=== PATIENT | male | born 1965 | race African-American/Black ===

== ENCOUNTER 2024-02-12 15:32 | Outpatient (AMB) | payer BC, SELFPAY ==
--- NOTE | 2024-02-12 15:36 | HO.NEPHOV ---
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 He has gained some weight. He is compliant with medications. His blood pressure has been at goal. He does not have any orthostatic symptoms. He has no side effects from his current medication regimen. He denies excessive sodium in the diet. He does not have any chest pain, shortness of breath, proximal nocturnal dyspnea, orthopnea, pedal edema. He does not take any excessive nonsteroidal anti-inflammatories. He maintains good hydration. There were no new active complaints at the time of this office visit. [facility] Medical History (Updated 02/12/24 @ 15:47 by Isacc Ash MD) Hypertension Surgical History (Updated 02/12/24 @ 14:59 by Yoselin Wilkinson MA) History of vasectomy Family History (Updated 02/12/24 @ 15:01 by Yoselin Wilkinson MA) Father Kidney transplant status Hypertension Sister Kidney disease Social History (Updated 02/12/24 @ 15:41 by Yoselin Wilkinson MA) Alcohol intake: never Patient Tobacco Use Status: Never used Tobacco Review of Systems Const All systems reviewed & are unremarkable except as noted in HPI and below Physical Exam Vital Signs: Last Vital Signs Pulse 71 02/12/24 15:37 BP 120/70 02/12/24 15:37 Pulse Ox 98 02/12/24 15:37 Oxygen Delivery Method Room Air 02/12/24 15:37 BMI result Body Mass Index 31.8 Const General: comfortable and no acute distress Orientation/consciousness: patient oriented x3 HEENT Head: Yes normocephalic Mouth: Normal oral and palatal mucosa present Eyes EOM: EOMs intact bilaterally Neck Neck: Yes supple Resp Auscultation: clear to auscultation bilaterally Cardio Jugular venous distension: no JVD Rate: regular rate GI Palpation (GI): Soft to palpation Auscultation: normal bowel sounds General: Yes no CVA tenderness Back/Spine/Pelvis Back: no CVA tenderness Skin General skin exam: no rashes or lesions noted Neuro General: patient oriented x3 and moves all extremities Extrem General: Yes no pedal edema Results Reviewed Nephrology Results: No Data to Display Assessment & Plan Assessment & Plan (1) Hypertension: Code(s): I10 - Essential (primary) hypertension Category: Medical Qualifiers: Hypertension type: primary hypertension Qualified Code(s): I10 - Essential (primary) hypertension Plan Manuelito as hypertension for long time. He has been on current medication regimen which is keeping his blood pressure at goal. Does not have any known retinopathy, proteinuria, left ventricular hypertrophy or renal dysfunction. He has no active thyroid issues, hypokalemia or hypercalcemia. He does not have any sleep apnea. I asked him to lose some weight. I did not make any medication changes today. Follow-up lab work ordered to be done in a year. Shall be happy to see him before a year if the need arises. Orders: Orders Creatinine Today I10 - Essential (primary) hypertension Blood Urea Nitrogen Today I10 - Essential (primary) hypertension Electrolytes Today I10 - Essential (primary) hypertension Protein Creatinine Ratio, Ur Today I10 - Essential (primary) hypertension Coding Level of Care Code Est Pt Level 4 (05242) Diagnoses Primary hypertension I10 Hypertension type: primary hypertension
[2024-02-12 15:37] VITALS: BP 120/70; PULSE 71; O2SAT 98; BMI 31.8
== END 2024-02-12 16:06 | disposition home or self-care (01) ==
PROVIDERS: Visit Provider Internal Medicine Nephrology
DX: I10 Essential (primary) hypertension (principal)
CPT/HCPCS: 99214

== ENCOUNTER → 2024-02-12 15:32 | Outpatient (BNVA) | payer BC, SELFPAY | PROVIDERS: Visit Provider Internal Medicine Nephrology ==

== ENCOUNTER 2025-02-12 15:15 | Outpatient (AMB) | payer BC, SELFPAY ==
--- NOTE | 2025-02-12 15:21 | HO.NEPHOV ---
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 He is compliant with medications. His blood pressure has been at goal. He does not have any orthostatic symptoms. He has no side effects from his current medication regimen. He denies excessive sodium in the diet. He does not have any chest pain, shortness of breath, proximal nocturnal dyspnea, orthopnea, pedal edema. He does not take any excessive nonsteroidal anti-inflammatories. He maintains good hydration. There were no new active complaints at the time of this office visit. [facility] Medical History (Updated 02/12/24 @ 15:47 by Isacc Ash MD) Hypertension Surgical History History of vasectomy Family History Father Kidney transplant status Hypertension Sister Kidney disease Social History Alcohol intake: never Patient Tobacco Use Status: Never used Tobacco Review of Systems Const All systems reviewed & are unremarkable except as noted in HPI and below Physical Exam Vital Signs: Last Vital Signs Pulse 61 02/12/25 15:24 BP 150/90 H 02/12/25 15:24 Pulse Ox 94 02/12/25 15:24 Oxygen Delivery Method Room Air 02/12/25 15:24 BMI result Body Mass Index 33.8 Const General: comfortable and no acute distress Orientation/consciousness: patient oriented x3 HEENT Head: Yes normocephalic Mouth: Normal oral and palatal mucosa present Eyes EOM: EOMs intact bilaterally Neck Neck: Yes supple Resp Auscultation: clear to auscultation bilaterally Cardio Jugular venous distension: no JVD Rate: regular rate GI Palpation (GI): Soft to palpation Auscultation: normal bowel sounds General: Yes no CVA tenderness Back/Spine/Pelvis Back: no CVA tenderness Skin General skin exam: no rashes or lesions noted Neuro General: patient oriented x3 and moves all extremities Extrem General: Yes no pedal edema Assessment & Plan Assessment & Plan (1) Hypertension: Code(s): I10 - Essential (primary) hypertension Category: Medical Qualifiers: Hypertension type: primary hypertension Qualified Code(s): I10 - Essential (primary) hypertension Plan Manuelito as hypertension for long time. He has been on current medication regimen which is keeping his blood pressure at goal. Does not have any known retinopathy, proteinuria, left ventricular hypertrophy or renal dysfunction. He has no active thyroid issues, hypokalemia or hypercalcemia. He does not have any sleep apnea. I asked him to lose some weight. I did not make any medication changes today. Follow-up lab work ordered to be done in a year. Shall be happy to see him before a year if the need arises. Coding Level of Care Code Est Pt Level 4 (19350) Diagnoses Primary hypertension I10 Hypertension type: primary hypertension
[2025-02-12 15:24] VITALS: BP 140/90; PULSE 61; O2SAT 94; BMI 33.8
--- OUTSIDE RECORDS SUMMARY | 2025-02-12 16:36 | XMS_ITS | Clinical Summary ---
Author Organization [facility] Address [address] [place] [address] Phone Care Team Providers Care Eligibility Clerk Name Role Phone Ahmet Louis MD Primary Care Provider [phone] Allergies No known active allergies Medications lisinopril-hydr oCHLOROthiazide (PRINZIDE,ZESTO RETIC) 20-25 MG per tablet Take 2 tablets by mouth 1 (one) time each day Active NIFEdipine XL (PROCARDIA XL) 90 MG 24 hr tablet Take 1 tablet by mouth 1 (one) time each day Active Active Problems Problem Noted Date Diagnosed Date Hypertension 01/23/2022 Hypertensive disorder 01/19/2021 Family History Medical History Relation Comments Diabetes Child Hypertension Father Kidney disease Father kidney transplan t Kidney disease Sibling sister Relation Status Comments Child Father Sibling Social History Tobacco Use Types Packs/Day Years Used Date Smoking Tobacco: Never Smokeless Tobacco: Never Tobacco Cessation:Counseling Given: Not Answered Alcohol Use Standard Drinks/Week Comments No 0 (1 standard drink = 0.6 oz pur e alcohol) Sex and Gender Information Value Date Recorded Sex Assigned at Not on file Legal Sex Male 4:54 PM EST Gender Identity Not on file Sexual Orientation Not on file Last Filed Vital Signs Vital Sign Reading Time Taken Comments Blood Pressure 128/65 03/27/2023 4:23 PM EST Pulse 63 03/27/2023 4:23 PM EST Temperature - - Respiratory Rate - - Oxygen Saturation 96% 03/27/2023 4:23 PM EST Inhaled Oxygen Concentration - - Weight 115 kg (253 lb) 03/27/2023 4:23 PM EST Height 180.3 cm (5' 11 ) 12/19/2019 12:00 PM EDT Body Mass Index 35.29 12/19/2019 12:00 PM EDT Plan of Treatment Health Maintenance Due Date Last Done Comments Pneumococcal Vaccine: 50+ Ye ars (1 of 2 - PCV) 01/26/1983 Colorectal Cancer Screening: Annual FOBT 01/26/2013 Colorectal Cancer Screening: Colonoscopy 01/26/2013 Colorectal Cancer Screening: Sigmoidoscopy 01/26/2013 Influenza Vaccine (#1) 2025 Hepatitis B Vaccine Aged Out No longe r eligible based on patient's age to complete this topic Insurance [facility] Care Teams Eligibility Clerk Relationship Specialty Start Date End Date Ahmet Louis MD [address] [place] [address] PCP - General 05/24/20
== END 2025-02-12 15:52 | disposition home or self-care (01) ==
LOC: HO.HKAS 15:16
PROVIDERS: Visit Provider Internal Medicine Nephrology
DX: I10 Essential (primary) hypertension (principal)
CPT/HCPCS: 99214